=== PATIENT | female | born 1930 ===

== ENCOUNTER 2019-07-23 08:26 | Emergency (ER) | payer OTHER ==
[~2019-07-23] VITALS: Ht 162.6 cm; Wt 54.4 kg
[~2019-07-23 08:26] MED LIST: CENTRUM SILVER1 TAB PO
[2019-07-23] MEDS ORDERED: MESTINON60 M1 (08:46)
[2019-07-23] MEDS ORDERED: CALTRATE 600 +1 EACH (08:46)
== END 2019-07-23 20:44 | disposition home or self-care (01) ==
LOC: ER 08:26 → EDBD 08:54 → ER 08:54
DX: D64.89 Other specified anemias (principal); K44.9 Diaphragmatic hernia without obstruction or gangrene; K57.30 Diverticulosis of large intestine without perforation or abscess without bleeding; G70.01 Myasthenia gravis with (acute) exacerbation; R42 Dizziness and giddiness